=== PATIENT | male | born 1980 ===

== ENCOUNTER 2017-07-07 18:34 | Emergency (ER) | payer SELFPAY ==
[2017-07-07 19:31] VITALS: BP 119/74; PULSE 67; TEMP 98.2; O2SAT 98
--- NOTE | 2017-07-07 21:19 | C.PDOC ---
History Of Present Illness 36 year old male presents to the ED for evaluation of right wrist pain which began around 1 week ago. Patient notes the pain started after he lifted a heavy object. Patient notes he only experiences pain with certain movements. Patient states he is right hand dominant. He denies changes in sensation or any other injuries at this time. Time Seen by Provider: 07/07/17 19:42 Chief Complaint (Nursing): Finger,Hand,&Wrist History Per: Patient History/Exam Limitations: no limitations Onset/Duration Of Symptoms: Other (1 week) Current Symptoms Are (Timing): Still Present Quality: "Pain" Exacerbating Factor(s): Movement Additional History Per: Patient Past Medical History Reviewed: Historical Data, Nursing Documentation, Vital Signs Vital Signs: Last Vital Signs Temp 98.2 F 07/07/17 19:24 Pulse 67 07/07/17 19:24 Resp 20 07/07/17 21:30 BP 119/74 07/07/17 19:24 Pulse Ox 98 07/07/17 22:33 - Medical History PMH: Asthma Surgical History: No Surg Hx Family History: States: Unknown Family Hx - Social History Hx Alcohol Use: Yes Hx Substance Use: No - Immunization History Hx Tetanus Toxoid Vaccination: No Hx Influenza Vaccination: No Hx Pneumococcal Vaccination: No Review Of Systems Musculoskeletal: Positive for: Other (right wrist pain ) Neurological: Negative for: Weakness, Numbness Physical Exam - Physical Exam Appears: Non-toxic, No Acute Distress Skin: Normal Color, Warm, Dry Extremity: No Normal ROM (limited secondary to pain with external rotation of right wrist ), No Tenderness, Capillary Refill (less than 2 seconds ), No Deformity, No Swelling Pulses: Right Radial: Normal Neurological/Psych: Normal Speech, Normal Cognition, Normal Sensation ED Course And Treatment O2 Sat by Pulse Oximetry: 98 - Other Rad Wrist XR X-Ray: Interpreted by Me, Viewed By Me Interpretation: No fx or dislocation Progress Note: Right wrist XR ordered and reviewed. Wrist immobilizer applied by hvac tech. Patient is advised to follow up with PMD/clinic within 1-3 days for further evaluation. Disposition - Disposition Referrals: Kady Garcia MD [Staff Provider] - Disposition: HOME/ ROUTINE Disposition Time: 21:17 Condition: STABLE Additional Instructions: Vaya a medina stacia o la clnica en 1-3 macdonald sin falta, para mas evaluacin. [place] los medicamentos marky indicado. Volver a la ivory de emergencia en cualquier momento si los sntomas persisten o empeoran. Instructions: Wrist Sprain (ED) Forms: [facility] (Maori), Work Excuse Print Language: MOSOTHO - Clinical Impression Clinical Impression: Tendonitis - PA / ZONE MANAGER / Resident Statement MD/DO has reviewed & agrees with the documentation as recorded. - Scribe Statement The provider has reviewed the documentation as recorded by the Scribe (Yessenia Peters) All medical record entries made by the Scribe were at my direction and personally dictated by me. I have reviewed the chart and agree that the record accurately reflects my personal performance of the history, physical exam, medical decision making, and the department course for this patient. I have also personally directed, reviewed, and agree with the discharge instructions and disposition.
[2017-07-07 21:31] VITALS: RESP 20
--- NOTE | 2017-07-08 11:02 | RAD ---
PROCEDURE: Right Wrist Radiographs. HISTORY: trauma COMPARISON: None. FINDINGS: BONES: A well corticated large chronic appearing nondisplaced ulnar styloid fracture suggested. . Mild 5th metacarpal deformity consistent with old healed fracture. No acute fractures noted. JOINTS: No dislocation SOFT TISSUES: Normal. OTHER FINDINGS: None. IMPRESSION: No acute fracture. Old fractures as above
== END 2017-07-07 21:30 | disposition home or self-care (01) ==
LOC: C.ER 18:34
DX: M77.8 Other enthesopathies, not elsewhere classified (principal)

== ENCOUNTER 2019-01-05 11:57 | Emergency (ER) | payer OTHER ==
[2019-01-05 12:20] VITALS: BP 108/69; PULSE 64; RESP 18; TEMP 98.1; O2SAT 99
--- NOTE | 2019-01-05 13:39 | C.PDOC ---
History Of Present Illness 38 y/o male presents to the ER complaining of intermittent dizziness which has been present for the past 2 days. Patient states that he an episode of dizziness which lasted 30 seconds and the dizziness resolved spontaneously. Patient reports that he had associated diaphoresis. He states that he drank 15 beers at night 3 days ago.Denies having fever,chills,CP,SOB, palpitations, nausea, vomiting, and abdominal pain. Time Seen by Provider: 01/05/19 13:27 Chief Complaint (Nursing): Dizziness/Lightheaded History Per: Patient History/Exam Limitations: no limitations Onset/Duration Of Symptoms: Days Current Symptoms Are (Timing): Still Present Severity: Moderate Past Medical History Reviewed: Historical Data, Nursing Documentation, Vital Signs Vital Signs: Last Vital Signs Temp 98.1 F 01/05/19 12:17 Pulse 64 01/05/19 12:17 Resp 18 01/05/19 12:17 BP 108/69 01/05/19 12:17 Pulse Ox 99 01/05/19 12:17 - Medical History PMH: Asthma Other Surgeries: Hx of surgeries Family History: States: No Known Family Hx - Social History Hx Alcohol Use: Yes Hx Substance Use: No - Immunization History Hx Tetanus Toxoid Vaccination: No Hx Influenza Vaccination: No Hx Pneumococcal Vaccination: No Review Of Systems Except As Marked, All Systems Reviewed And Found Negative. Constitutional: Negative for: Fever, Chills Cardiovascular: Negative for: Chest Pain Respiratory: Negative for: Shortness of Breath Gastrointestinal: Negative for: Nausea, Vomiting, Abdominal Pain Neurological: Positive for: Dizziness Physical Exam - Physical Exam Appears: Non-toxic, No Acute Distress Skin: Normal Color, Warm, Dry Head: Atraumatic, Normacephalic Eye(s): bilateral: Normal Inspection Nose: Other (some increased nasal passage inflammation) Oral Mucosa: Moist Neck: Supple Chest: Symmetrical Cardiovascular: Rhythm Regular Respiratory: Normal Breath Sounds, No Rales, No Rhonchi, No Wheezing Gastrointestinal/Abdominal: Normal Exam, Soft, No Tenderness, No Guarding, No Rebound Neurological/Psych: Oriented x3, Normal Speech ED Course And Treatment O2 Sat by Pulse Oximetry: 99 (RA) Pulse Ox Interpretation: Normal Medical Decision Making Medical Decision Making: brief dizziness 2 days ago and today ? 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 Disposition Doctor Will See Patient In The: Office Counseled Patient/Family Regarding: Studies Performed, Diagnosis - Disposition Referrals: Thomas Godoy MD [Non-Staff] - Disposition: HOME/ ROUTINE Disposition Time: 13:38 Condition: GOOD Additional Instructions: medicamentos para descongestionar las pasages nasales Flonase 1 espray 2 veces al ap cada lado del nariz. Dayquil/Nyquil marky necessario Sigue con medina medico marky necessario. Instructions: Dizziness, Nonvertigo, (DC) Forms: [employer] ([place] Islander) Print Language: DANISH - Clinical Impression Clinical Impression: Dizziness - Scribe Statement The provider has reviewed the documentation as recorded by the Scribe [place] Provider Attestation: All medical record entries made by the Scribe were at my direction and personally dictated by me. I have reviewed the chart and agree that the record accurately reflects my personal performance of the history, physical exam, medical decision making, and the department course for this patient. I have also personally directed, reviewed, and agree with the discharge instructions and disposition.
== END 2019-01-05 13:53 | disposition home or self-care (01) ==
LOC: C.ER 11:57
DX: R42 Dizziness and giddiness (principal)